=== PATIENT | female | born 1965 | race Caucasian/White ===

== ENCOUNTER → 2016-09-16 | Outpatient (CLI) | payer BC ==
--- NOTE | 2016-09-16 09:17 | US ---
EXAMINATION TYPE: US abdomen complete DATE OF EXAM: 09/16/2016 COMPARISON: NONE CLINICAL HISTORY: Pelvic Pain, Abd Pain R10.2 R10.9. Pt states right side ABD pain EXAM MEASUREMENTS: Liver Length: 21.1 cm CBD: 0.9 cm Spleen: 11.9 cm Right Kidney: 11.3 x 4.6 x 5.2 cm Left Kidney: 12.1 x 5.8 x 4.9 cm Pancreas: wnl, tail obscured by overlying bowel gas Liver: Enlarged, heterogeneous, difficult to penetrate Gallbladder: Surgically absent Evidence for sonographic Jean Baptiste's sign: No CBD: wnl for post ryann Spleen: wnl Right Kidney: wnl Left Kidney: wnl Upper IVC: wnl Abd Aorta: wnl The liver is mildly enlarged and heterogenous in its overall echo appearance. The intrahepatic portio n of the IVC and proximal abdominal aorta are within normal limits. The gallbladder is surgically abs ent. Common bile duct is unremarkable. The visualized portions of the pancreas are homogenous. The spleen is unremarkable. Kidneys are symmetric and free of hydronephrosis. No renal lesions are seen . IMPRESSION: 1. Hepatomegaly with probable underlying fatty hepatic infiltration.
--- NOTE | 2016-09-16 09:20 | US ---
EXAMINATION TYPE: US pelvis complete transvag DATE OF EXAM: 09/16/2016 COMPARISON: NONE CLINICAL HISTORY: Pelvic Pain, Abd Pain R10.2 R10.9. Pt states right side ABD pain/ Left oophorectom y with partial right oophorectomy TECHNIQUE: Transvaginal (TV) and Transabdominal (TA) Date of LMP: 2 yrs ago EXAM MEASUREMENTS: Uterus: 9.2 x 3.9 x 4.5 cm Endometrial Stripe: 1.1 cm Right Ovary: 2.0 x 0.9 x 2.5 cm 1. Uterus: Retroverted Heterogeneous, calcifications within cervix 2. Endometrium: Borderline thickening of the endometrial stripe. 3. Right Ovary: wnl 4. Left Ovary: Surgically absent 5. Bilateral Adnexa: wnl 6. Posterior cul-de-sac: wnl IMPRESSION: 1. Heterogeneity of the uterine myometrium may reflect small layering change. No distinct mass identi fied.
== END | disposition home or self-care (01) ==
LOC: RADUSWWP 08:21
PROVIDERS: ATTEND Family Medicine
DX: N85.9 Noninflammatory disorder of uterus, unspecified (principal); R16.0 Hepatomegaly, not elsewhere classified; R10.2 Pelvic and perineal pain
CPT/HCPCS: 76700; 76830; 76856

== ENCOUNTER → 2016-11-02 | Outpatient (CLI) | payer OTHER ==
--- NOTE | 2016-11-02 18:15 | XR ---
PROCEDURE: XR hand complete LT DATE AND TIME: 11/02/2016 5:32 PM REFERRING PHYSICIAN: Sb Coleman DO CLINICAL INDICATION: PHH, S61.201A S67.191A crush/wound left index finger TECHNIQUE: Department protocol. COMPARISON: None FINDINGS: There is no fracture or malalignment. Bandaging over the second digit noted. The soft tissues are otherwise unremarkable. IMPRESSION: NO ACUTE PROCESS.
== END | disposition home or self-care (01) ==
LOC: RADXRMAIN 17:15
PROVIDERS: ATTEND Emergency Medicine
DX: S67.191A Crushing injury of left index finger, initial encounter (principal); S61.201A Unspecified open wound of left index finger without damage to nail, initial encounter

== ENCOUNTER → 2017-03-24 | Outpatient (CLI) | payer BC ==
--- NOTE | 2017-03-24 14:04 | XR ---
EXAMINATION TYPE: XR knee complete RT DATE OF EXAM: 03/24/2017 COMPARISON: NONE HISTORY: Right knee pain TECHNIQUE: Three-view right knee FINDINGS: There is narrowing of the medial compartment joint space. Tibial plateau and medial femoral condylar spurring is present. No joint effusion is present. Some patellofemoral joint space narrowin g is present. Some lateral femoral condylar spurring is noted. No acute fractures are evident. Follow-up exam can be performed 7-10 days from acute trauma for mary nued pain. IMPRESSION: 1. Moderate degenerative changes medial compartment right knee.
== END | disposition home or self-care (01) ==
LOC: RADXRYALE 12:37
PROVIDERS: ATTEND Physician Assistant Medical
DX: M25.561 Pain in right knee (principal)

== ENCOUNTER → 2017-06-08 | Outpatient (CLI) | payer BC ==
--- NOTE | 2017-06-10 11:35 | MM ---
Reason for exam: screening (asymptomatic). Last mammogram was performed 3 years ago. History: Patient is postmenopausal. Physical Findings: A clinical breast exam by your physician is recommended on an annual basis and results should be correlated with mammographic findings. MG Screening Mammo w CAD Bilateral CC and MLO view(s) were taken. Prior study comparison: June 21, 2014, bilateral MG screening mammo w CAD. April 01, 2010, bilateral digital screening mammo w/CAD. There are scattered fibroglandular densities. No significant changes when compared with prior studies. ASSESSMENT: Negative, BI-RAD 1 RECOMMENDATION: Routine screening mammogram of both breasts in 1 year.
== END | disposition home or self-care (01) ==
LOC: RADMAMWWP 14:38
PROVIDERS: ATTEND Family Medicine
DX: Z12.31 Encounter for screening mammogram for malignant neoplasm of breast (principal)
CPT/HCPCS: 77067

== ENCOUNTER → 2017-07-07 | Outpatient (CLI) | payer BC ==
[2017-07-07 09:41] VITALS: BP 138/86; PULSE 82; TEMP 98.1; BMI 45.7
--- NOTE | 2017-07-07 09:59 | P.HPBAR ---
Bariatric H&P - History & Physicial H&P Date: 07/07/17 History & Physicial: Visit/CC: Patient initial contact: Initial weight: Initial weight in pounds: Height: 5 ft 5 in Initial BMI: Last weight: Current weight: 124.738 kg Current weight in pounds: Current BMI: [place] body weight (based on NIH guidelines): Excess body weight loss: The patient is a 52 year-old F who presents for Bariatric Assessment. She comes in looking into the sleeve gastrectomy. She has completed 2 months medical supervised weight loss. Her requirement is 7 months. She has tried Weight watchers, medical weight loss and diets at home in the past. Most weight loss was 40-lbs with medical weight loss. Highest weight was 290-lbs. Her personal goal is to get to 150 to 160 pounds. She has family history of morbid obesity in her mother and aunt. No family or friends has had weight loss surgery. She denies esophageal or stomach cancer. She has troubles with fatty and greasy foods with diarrhea following her gallbladder removal. She has not taken any medications for stomach acid or reflux. She denies any troubles with sleeping or snoring. She reports lower back pain and knee pain as a result of her obesity. She has developed diabetes type II and taking 2 oral medications where her average blood sugar is 110 to 120s in the morning. No family history of thyroid disorder. No inflammatory bowel disease in the family or DVTs in the family. She is a lifelong non-smoker. She reports a rash along her pannus. She denies dysphagia. ABDOMEN: No scars of the upper abdomen. Soft, nontender. Has rash along pannus consistent with panniculitis. ASSESSMENT: 1. Morbid obesity, BMI 45.8 2. Diabetes type II 3. Osteoarthritis of the knees. 4. Lower back pain. 5. Panniculitis PLAN: 1. Went over [facility] calculator and risks to procedures. 2. Upper endoscopy. 3. Bariatric labs. Past Medical History Past Medical History: Diabetes Mellitus History of Any Multi-Drug Resistant Organisms: None Reported Past Surgical History: Cholecystectomy, Ear Surgery, Tonsillectomy, Tubal Ligation Additional Past Surgical History / Comment(s): LEFT EARDRUM, 1 and 1/2 ovaries removed. Past Anesthesia/Blood Transfusion Reactions: No Reported Reaction Past Psychological History: Anxiety Smoking Status: Never smoker Past Alcohol Use History: Occasional Past Drug Use History: None Reported - Past Family History Mother Family Medical History: Cancer Bariatric Checklist Checklist: Plan: Checklist: EGD: 1. Hiatal hernia: 2. H. Pylori: HgbA1c: Vitamin D: Smoking: Never smoker Primary care physician referral: Psychiatry clearance: Cardiology clearance: Sleep study: Diet journal: VTE risk score: VTE risk level: Rehab needs at discharge:
[2017-07-07 10:40] LABS: HCT 38.4 % (34.0-46.0); HGB 13.2 gm/dL (11.4-16.0); MCH 30.3 pg (25.0-35.0); MCHC 34.5 g/dL (31.0-37.0); MCV 88.1 fL (80.0-100.0); Mean Platelet Volume 7.1; Platelet Count 282 k/uL (150-450); RBC 4.36 m/uL (3.80-5.40); RDW 12.9 % (11.5-15.5); WBC 7.8 k/uL (3.8-10.6)
[2017-07-07 10:59] LABS: ALT 46 U/L (9-52); AST 32 U/L (14-36); Albumin 4.5 g/dL (3.5-5.0); Alkaline Phosphatase 115 U/L (38-126); Anion Gap 16 mmol/L; Blood Urea Nitrogen 14 mg/dL (7-17); Calcium 10.2 mg/dL (8.4-10.2); Carbon Dioxide 24 mmol/L (22-30); Chloride 101 mmol/L (98-107); Cholesterol 197 mg/dL (<200); Glucose 132 mg/dL (74-99); HDL Cholesterol 58 mg/dL (40-60); LDL Cholesterol,Calculated 105 mg/dL (0-99); Potassium 4.7 mmol/L (3.5-5.1); Sodium 141 mmol/L (137-145); Total Bilirubin 0.4 mg/dL (0.2-1.3); Total Protein 7.3 g/dL (6.3-8.2); Triglycerides 170 mg/dL (<150)
[2017-07-07 16:55] LABS: Iron Saturation 18.16 (12.00-45.00)
[2017-07-07 17:05] LABS: Vitamin D 25 Hydroxy 17.4 ng/mL (30.0-100.0)
[2017-07-07 17:06] LABS: Folate, Serum >24.0 ng/mL
[2017-07-07 17:15] LABS: Hemoglobin A1C 7.1 % (4.0-6.0)
== END | disposition home or self-care (01) ==
LOC: BARWHC3 09:02
PROVIDERS: ATTEND Surgery Plastic and Reconstructive Surgery
DX: E66.01 Morbid (severe) obesity due to excess calories (principal); E11.9 Type 2 diabetes mellitus without complications; M17.0 Bilateral primary osteoarthritis of knee; M54.5 Low back pain; M79.3 Panniculitis, unspecified; F41.9 Anxiety disorder, unspecified; Z90.49 Acquired absence of other specified parts of digestive tract; Z68.42 Body mass index [BMI] 45.0-49.9, adult
CPT/HCPCS: 36415; 80053; 80061; 82306; 82607; 82728; 82746; 83036; 83540; 83550; 84425; 84443; 85027; 93005; 99211

== ENCOUNTER 2017-08-17 07:58 | Day surgery (SDC) | payer BC ==
[2017-08-15 15:37] VITALS: BMI 45.6
[~2017-08-17 07:58] MED LIST: LACTATED RINGERS 1,000 ML IV SCH; LIDOCAINE 1% 20 ML VIAL (10MG/ML) FOR IV START INTRADERMA PRN
[2017-08-17 08:17] VITALS: TEMP 97.3
[2017-08-17 08:25] LABS: Glucose,Whole Blood 143 mg/dL (75-99)
[2017-08-17] MEDS ORDERED: PROPOFOL 10 MG/ML 20 ML VIAL IV ONE (08:27)
--- NOTE | 2017-08-17 08:45 | P.GSHP ---
History of Present Illness H&P Date: 08/17/17 CHIEF COMPLAINT: GERD HISTORY OF PRESENT ILLNESS: The patient is a 52-year-old female who presents reports gastroesophageal reflux disease. Upper endoscopy was offered for further evaluation and management. PAST MEDICAL HISTORY: Please see list. PAST SURGICAL HISTORY: Please see list. MEDICATIONS: Please see list. ALLERGIES: Please see list. SOCIAL HISTORY: No illicit drug use FAMILY HISTORY: No reports of Crohn disease or ulcerative colitis. REVIEW OF ORGAN SYSTEMS: CONSTITUTIONAL: No reports of fevers or chills. GI: Denies any blood in stools or constipation. PHYSICAL EXAM: VITAL SIGNS: Stable GENERAL: Well-developed and pleasant in no acute distress. HEENT: No scleral icterus. Extraocular movements grossly intact. Moist buccal mucosa. NECK: Supple without lymphadenopathy. CHEST: Unlabored respirations. Equal bilateral excursions. CARDIOVASCULAR: Regular rate and rhythm. Distal 2+ pulses. ABDOMEN: Soft, nondistended. MUSCULOSKELETAL: No clubbing, cyanosis, or edema. ASSESSMENT: 1. Gastroesophageal reflux disease PLAN: 1. Recommend proceeding with an upper endoscopy Past Medical History Past Medical History: Diabetes Mellitus, Hyperlipidemia History of Any Multi-Drug Resistant Organisms: None Reported Past Surgical History: Cholecystectomy, Ear Surgery, Tonsillectomy, Tubal Ligation Additional Past Surgical History / Comment(s): LEFT EARDRUM, 1 and 1/2 ovaries removed. Past Anesthesia/Blood Transfusion Reactions: No Reported Reaction Smoking Status: Never smoker - Past Family History Mother Family Medical History: Cancer Daughter(s) Family Medical History: Deep Vein Thrombosis (DVT) Medications and Allergies Home Medications Medication Instructions Recorded Confirmed Type metFORMIN HCL [metFORMIN HCL] 1,000 mg PO BID 10/31/13 08/17/17 History Aspirin [Adult Low Dose Aspirin EC] 81 mg PO DAILY 12/09/16 08/17/17 History Atorvastatin [Lipitor] 40 mg PO HS 12/09/16 08/17/17 History Citalopram Hydrobromide 40 mg PO DAILY 12/09/16 08/17/17 History [Citalopram HBr] Multivitamins, Thera [Multivitamin 1 tab PO DAILY 12/09/16 08/17/17 History (formulary)] Pioglitazone [Actos] 30 mg PO DAILY 12/09/16 08/17/17 History Allergies Allergy/AdvReac Type Severity Reaction Status Date / Time No Known Allergies Allergy Verified 08/15/17 15:34 Surgical - Exam Vital Signs Temp Pulse Resp BP Pulse Ox 97.3 F L 71 14 115/72 96 08/17/17 08:15 08/17/17 08:15 08/17/17 08:15 08/17/17 08:15 08/17/17 08:15 Results - Labs Abnormal Lab Results - Last 24 Hours (Table) 08/17/17 Range/Units 08:20 POC Glucose (mg/dL) 143 H (75-99) mg/dL
--- NOTE | 2017-08-17 08:47 | P.PCN ---
Date of Procedure: 08/17/17 Description of Procedure: PREOPERATIVE DIAGNOSIS: Gastroesophageal reflux disease. Morbid obesity. POSTOPERATIVE DIAGNOSIS: Morbid obesity. Gastritis with recent bleed Gastric ulcer along the antrum Gastroesophageal reflux disease. Diaphragmatic hiatal hernia without obstruction. OPERATION: Esophagogastroduodenoscopy with biopsies along antrum. SURGEON: Loly Cm MD ANESTHESIA: MAC. INDICATIONS: The patient is a 52-year-old female who presents with a history of reflux disease. Benefits and risks of the procedure were described. Informed consent was obtained. DESCRIPTION: The patient was brought into the endoscopy suite and laid in the left lateral decubitus position. An Olympus gastroscope was passed along the posterior oropharynx down to the distal esophagus where the squamocolumnar junction was encountered at 32 cm from the incisors. The stomach was entered and no bile reflux was found. Additional findings are listed below. Biopsies with cold forceps were obtained of the antrum. The first through third portion of the duodenum was examined and unremarkable. Retroflexion of the scope confirmed Hill grade 4 lower esophageal valve. The squamocolumnar junction demostrated LA grade A erosive esophagitis. The stomach was desufflated. The patient tolerated the procedure well. FINDINGS: Squamocolumnar junction 32 cm from the incisors. Diaphragmatic hiatus at 35 cm. Hiatal hernia 3 cm. Hill grade 4 lower esophageal valve. LA grade A erosive esophagitis. No active duodenitis. Acute superficial gastritis with bleeding Superficial gastric ulcer along antrum RECOMMENDATIONS: Further recommendations pending results of pathology report. Upper endoscopy as needed. Will benefit from antireflux surgical procedure Plan - Discharge Summary New Discharge Prescriptions: No Action metFORMIN HCL [metFORMIN HCL] 1,000 mg PO BID Atorvastatin [Lipitor] 40 mg PO HS Pioglitazone [Actos] 30 mg PO DAILY Multivitamins, Thera [Multivitamin (formulary)] 1 tab PO DAILY Aspirin [Adult Low Dose Aspirin EC] 81 mg PO DAILY Citalopram Hydrobromide [Citalopram HBr] 40 mg PO DAILY Discharge Medication List metFORMIN HCL [metFORMIN HCL] 1,000 mg PO BID 10/31/13 [History] Aspirin [Adult Low Dose Aspirin EC] 81 mg PO DAILY 12/09/16 [History] Atorvastatin [Lipitor] 40 mg PO HS 12/09/16 [History] Citalopram Hydrobromide [Citalopram HBr] 40 mg PO DAILY 12/09/16 [History] Multivitamins, Thera [Multivitamin (formulary)] 1 tab PO DAILY 12/09/16 [History ] Pioglitazone [Actos] 30 mg PO DAILY 12/09/16 [History]
[2017-08-17 08:53] VITALS: RESP 16
[2017-08-17 09:11] VITALS: BP 103/61; PULSE 63
== END 2017-08-17 09:25 | disposition home or self-care (01) ==
LOC: ORWHC2ENDO 07:58
PROVIDERS: ATTEND Surgery Plastic and Reconstructive Surgery
DX: K29.01 Acute gastritis with bleeding (principal); K29.50 Unspecified chronic gastritis without bleeding; K21.9 Gastro-esophageal reflux disease without esophagitis; K44.9 Diaphragmatic hernia without obstruction or gangrene; F41.9 Anxiety disorder, unspecified; E66.01 Morbid (severe) obesity due to excess calories; E11.9 Type 2 diabetes mellitus without complications; K22.10 Ulcer of esophagus without bleeding; E78.5 Hyperlipidemia, unspecified; Z90.49 Acquired absence of other specified parts of digestive tract; Z79.84 Long term (current) use of oral hypoglycemic drugs; Z79.82 Long term (current) use of aspirin; Z79.899 Other long term (current) drug therapy; Z68.42 Body mass index [BMI] 45.0-49.9, adult
CPT/HCPCS: 88305; 43239; J2704

== ENCOUNTER → 2017-11-02 | Outpatient (CLI) | payer BC | END | disposition home or self-care (01) | DX: K44.9 Diaphragmatic hernia without obstruction or gangrene (principal); R63.4 Abnormal weight loss; Z90.49 Acquired absence of other specified parts of digestive tract ==

== ENCOUNTER → 2017-11-07 | Outpatient (CLI) | payer BC ==
[2017-11-07 15:26] VITALS: BMI 37.8
== END | disposition home or self-care (01) ==
LOC: BARWHC3 08:56
PROVIDERS: ATTEND Surgery Plastic and Reconstructive Surgery
DX: E66.01 Morbid (severe) obesity due to excess calories (principal); Z68.37 Body mass index [BMI] 37.0-37.9, adult
CPT/HCPCS: 97804

== ENCOUNTER → 2017-11-25 | Outpatient (CLI) | payer OTHER ==
--- NOTE | 2017-11-25 15:57 | XR ---
EXAMINATION TYPE: XR shoulder complete RT DATE OF EXAM: 11/25/2017 COMPARISON: 04/01/2010 HISTORY: Pain TECHNIQUE: Shoulder examined in 3 FINDINGS: The humeral head articulates with the glenoid. The acromio-clavicular junction is normal. No acute fractures or dislocations are evident. A follow up study can be performed 7-10 days from acute trauma for continued pain. IMPRESSION: 1. Normal Shoulder
== END ==
LOC: RADXRMAIN 15:34
PROVIDERS: ATTEND Emergency Medicine
DX: S43.401A Unspecified sprain of right shoulder joint, initial encounter (principal)

== ENCOUNTER → 2017-12-06 | Outpatient (CLI) | payer OTHER ==
--- NOTE | 2017-12-06 22:05 | MR ---
EXAMINATION TYPE: MR shoulder RT wo con DATE OF EXAM: 12/06/2017 COMPARISON: Plain film 11/25/2017, prior right shoulder MRI 04/30/2010 HISTORY: Rt shoulder strain/pain TECHNIQUE: Multiplanar, multisequence imaging of the right shoulder is performed without contrast. FINDINGS: Rotator Cuff: The rotator cuff is markedly attenuated at the level of its insertion, at the anterior aspect of the insertion there is a partial full-thickness tear present which has progressed in the in terval. Acromioclavicular Joint: Hypertrophic changes are again noted at the acromioclavicular joint with mas s effect on the musculotendinous junction of supraspinatus, accessory ossicle at the superior aspect of the joint. Glenohumeral Joint: Intact Labrum: Stable appearance, no definite tear, there is some increased signal within the superior labru m may be due to degeneration Biceps Tendon: Long head of biceps tendon shows fluid signal around its substance, the bicipital groo ve does not show the tendon in place, suspect there is subluxation of the tendon medially Bone marrow signal: Pseudocysts are present within the humeral head Other: There is fluid signal subacromial subdeltoid bursa. IMPRESSION: There is a partial full-thickness tear the rotator cuff tendon, there is associated tendinopathy whic h is progressed in the interval. Suspect there may be subluxation of the long head of biceps tendon m edially from the bicipital groove
== END | disposition home or self-care (01) ==
LOC: RADMRIMAIN 20:53
PROVIDERS: ATTEND Emergency Medicine
DX: S46.011D Strain of muscle(s) and tendon(s) of the rotator cuff of right shoulder, subsequent encounter (principal); M75.91 Shoulder lesion, unspecified, right shoulder

== ENCOUNTER → 2018-01-04 | Outpatient (CLI) | payer BC ==
--- NOTE | 2018-01-04 17:11 | P.PN ---
Subjective Progress Note Date: 01/04/18 DATE OF SERVICE: 01/04/2018 CHIEF COMPLAINT: Bariatric evaluation. HISTORY OF PRESENT ILLNESS: Yue Nguyen is a 52-year-old female who comes in with morbid obesity. No reports of abdominal pain. She is looking into the sleeve gastrectomy. As a result of her morbid obesity, she has developed diabetes type 2, osteoarthritis, and hypertensive heart disease. Highest weight was 290-lbs. At height of 5 feet 5 inches, her ideal body weight is 149 pounds. She comes in 273 pounds. Her body mass index is down from 48.4 to 45.5. She is 124 pounds overweight. PAST MEDICAL HISTORY: 1. Morbid obesity, BMI 48.4, initial 2. Diabetes type II, [id number]. 3. Osteoarthritis of the knees. 4. Osteoarthritis of the hips. 5. Osteoarthritis of the lower back. 6. Hypertensive heart disease. 7. Depressive disorder 8. Hyperlipidemia 9. Anxiety PAST SURGICAL HISTORY: 1. Cholecystectomy 2. Ear surgery 3. Tubal ligation 4. Tonsillectomy HOME MEDICATIONS: 1. Metformin 2. Actos 3. Multivitamin 4. Citalopram 5. Lipitor 6. Aspirin ALLERGIES: Denies. SOCIAL HISTORY: No active tobacco use. FAMILY HISTORY: No family history of ulcerative colitis disease or Crohn's disease. Family history of morbid obesity. No lupus in the family. No reports of stomach or esophageal cancer. Family history of diabetes type 2. She has family history of morbid obesity in her mother and aunt. She has no family or friends has had weight loss surgery. She denies esophageal or stomach cancer. No family history of thyroid disorder. No inflammatory bowel disease in the family or DVTs in the family. REVIEW OF ORGAN SYSTEMS: CONSTITUTIONAL: Highest weight was 290-lbs. At height of 5 feet 5 inches, her ideal body weight is 149 pounds. She comes in 273 pounds. Her body mass index is down from 48.4 to 45.5. She is 124 pounds overweight. HEENT: Denies any active troubles with vision or hearing. No troubles with swallowing. ENDOCRINE: Has diabetes. No hypothyroidism. CARDIOVASCULAR: No reports of palpitations or heart attacks or chest pain. RESPIRATORY: Has daytime somnolence. No asthma. GI: Denies any bright red blood per rectum. No diarrhea or constipation. MUSCULOSKELETAL: Has lower back pain and joint pain. Has osteoarthritis of the knees. NEURO: No headaches. No seizure disorders. PSYCH: No depression or suicidal ideation. RHEUMATOLOGIC: No lupus. No rheumatoid arthritis. HEMATOLOGIC: Denies any abnormal bleeding or bruising. No personal history of DVTs. SKIN: She reports a rash along her pannus. No skin cancer. PHYSICAL EXAM: VITAL SIGNS: Height 5 foot 5 inches, weight 273 pounds. BMI 45.5 Vital Signs Temp 98.7 F 01/04/18 17:11 Pulse 101 H 01/04/18 17:11 Resp 16 01/04/18 17:11 BP 138/92 01/04/18 17:11 Pulse Ox GENERAL: Well-developed in no acute distress. HEENT: No scleral icterus. Extraocular movements grossly intact. Hears conversational speech. No nasal drainage. NECK: Supple without lymphadenopathy. CHEST: Nonlabored respirations with equal bilateral excursions. CARDIOVASCULAR: Tachycardic. Distal 2+ pulses. ABDOMEN: Soft, nontender. MUSCULOSKELETAL: No clubbing, cyanosis. Gross strength 5/5 distal lower extremities. No pre-tibial pitting edema. NEURO: No focal or lateralizing signs. Cranial nerves 2 through 12 grossly within normal limits. PSYCH: Appropriate affect. Alert and oriented to person, place and time. SKIN: Good skin turgor. Well perfused. ASSESSMENT: 1. Morbid obesity due to excess caloried, BMI 48.4, initial 2. Diabetes type II, [id number]. 3. Osteoarthritis of the knees. 4. Osteoarthritis of the hips. 5. Osteoarthritis of the lower back. 6. Hypertensive heart disease. 7. Depressive disorder 8. Hyperlipidemia 9. Anxiety PLAN: 1. Bariatric options between a sleeve, band and a Rosey-en-Y gastric bypass were reviewed in detail. She elected for a sleeve gastrectomy. Robotic assisted approach described. 2. An 8 page second-generation bariatric consent form was reviewed in detail including potential of bleeding, infection, leaks, adequate weight loss, nutritional deficiencies which he demonstrated understanding of the risks. 3. A 2 week high-protein low caloric 800 kcal diet described to address hepatomegaly. 4. Preoperative labs including complete metabolic panel and CBC with type and screen recommended. 5. DVT prophylaxis per [place] [facility]. 6. Antibiotic prophylaxis. 7. Inpatient hospitalization anticipated for more than 2 nights. 8. All questions and concerns were addressed with the patient. 9. She is intermediate risk for surgical complications with her diabetes and morbid obesity.
[2018-01-04 17:14] VITALS: BP 138/92; PULSE 101; RESP 16; TEMP 98.7; BMI 45.5
== END | disposition home or self-care (01) ==
LOC: BARWHC3 15:55
PROVIDERS: ATTEND Surgery Plastic and Reconstructive Surgery
DX: E66.01 Morbid (severe) obesity due to excess calories (principal); E11.9 Type 2 diabetes mellitus without complications; M17.0 Bilateral primary osteoarthritis of knee; M16.0 Bilateral primary osteoarthritis of hip; M19.90 Unspecified osteoarthritis, unspecified site; I11.9 Hypertensive heart disease without heart failure; F32.9 Major depressive disorder, single episode, unspecified; E78.5 Hyperlipidemia, unspecified; F41.9 Anxiety disorder, unspecified; Z68.42 Body mass index [BMI] 45.0-49.9, adult; Z79.899 Other long term (current) drug therapy; Z79.84 Long term (current) use of oral hypoglycemic drugs; Z79.82 Long term (current) use of aspirin; Z90.89 Acquired absence of other organs; Z90.49 Acquired absence of other specified parts of digestive tract
CPT/HCPCS: 99211

== ENCOUNTER → 2018-01-06 | Outpatient (CLI) | payer BC ==
[2018-01-06 14:05] LABS: Basophils % (A) 0 %; Eosinophils # (A) 0.1 k/uL (0-0.7); Eosinophils % (A) 1 %; HCT 42.3 % (34.0-46.0); HGB 13.7 gm/dL (11.4-16.0); Lymphocytes # (A) 2.2 k/uL (1.0-4.8); Lymphocytes % (A) 26 %; MCH 29.9 pg (25.0-35.0); MCHC 32.4 g/dL (31.0-37.0); MCV 92.3 fL (80.0-100.0); Mean Platelet Volume 6.9; Monocytes # (A) 0.6 k/uL (0-1.0); Monocytes % (A) 7 %; Neutrophils # (A) 5.2 k/uL (1.3-7.7); Neutrophils % (A) 63 %; Platelet Count 240 k/uL (150-450); RBC 4.59 m/uL (3.80-5.40); RDW 13.8 % (11.5-15.5); WBC 8.2 k/uL (3.8-10.6)
[2018-01-06 14:51] LABS: ALT 86 U/L (9-52); AST 64 U/L (14-36); Albumin 4.2 g/dL (3.5-5.0); Alkaline Phosphatase 80 U/L (38-126); Anion Gap 10 mmol/L; Blood Urea Nitrogen 19 mg/dL (7-17); Carbon Dioxide 22 mmol/L (22-30); Chloride 104 mmol/L (98-107); Glucose 127 mg/dL (74-99); Potassium 4.4 mmol/L (3.5-5.1); Sodium 136 mmol/L (137-145); Total Bilirubin 0.5 mg/dL (0.2-1.3); Total Protein 7.3 g/dL (6.3-8.2)
== END ==
LOC: LABPAT 12:30
PROVIDERS: ATTEND Surgery Plastic and Reconstructive Surgery
DX: Z01.812 Encounter for preprocedural laboratory examination (principal)
CPT/HCPCS: 36415; 80053; 85025; 86850; 86900; 86901

== ENCOUNTER 2018-01-16 10:11 | Inpatient (IN) | payer BC ==
--- NOTE | 2018-01-16 00:42 | P.GSHP ---
History of Present Illness H&P Date: 01/16/18 DATE OF SERVICE: 01/16/18 CHIEF COMPLAINT: Morbid obesity HISTORY OF PRESENT ILLNESS: Yue Nguyen is a 52-year-old female who comes in with morbid obesity. She denies any reflux. She completed her 7 month of dietary weight loss. Her highest weight was 290-lbs. She has developed diabetes type II. At height of 5 feet 5 inches, ideal body weight is 149 pounds. She comes in 269 pounds. Her body mass index was 49.9 and is now 44.9. She is 225 pounds overweight. PAST MEDICAL HISTORY: 1. Morbid obesity, BMI 49.9, initial 2. Diabetes type II, [id number]-[id number]. 3. Osteoarthritis of the knees. 4. Osteoarthritis of the hips. 5. Osteoarthritis of the lower back. 6. Hypertensive heart disease. 7. Depressive disorder 8. Hyperlipidemia 9. Anxiety PAST SURGICAL HISTORY: 1. Cholecystectomy 2. Ear surgery 3. Tubal ligation 4. Tonsillectomy HOME MEDICATIONS: 1. Metformin 2. Actos 3. Multivitamin 4. Citalopram 5. Lipitor 6. Aspirin ALLERGIES: Denies. SOCIAL HISTORY: No active tobacco use. FAMILY HISTORY: No family history of ulcerative colitis disease or Crohn's disease. Family history of morbid obesity. No lupus in the family. No reports of stomach or esophageal cancer. Family history of diabetes type 2. She has family history of morbid obesity in her mother and aunt. She has no family or friends has had weight loss surgery. She denies esophageal or stomach cancer. No family history of thyroid disorder. No inflammatory bowel disease in the family or DVTs in the family. REVIEW OF ORGAN SYSTEMS: CONSTITUTIONAL: Her highest weight was 290-lbs. She has developed diabetes type II. At height of 5 feet 5 inches, ideal body weight is 149 pounds. She comes in 269 pounds. Her body mass index was 49.9 and is now 44.9. She is 225 pounds overweight. HEENT: Denies any active troubles with vision or hearing. No troubles with swallowing. ENDOCRINE: Has diabetes. No hypothyroidism. CARDIOVASCULAR: No reports of palpitations or heart attacks or chest pain. RESPIRATORY: Has daytime somnolence. No asthma. GI: Denies any bright red blood per rectum. No diarrhea or constipation. MUSCULOSKELETAL: Has lower back pain and joint pain. Has osteoarthritis of the knees. NEURO: No headaches. No seizure disorders. PSYCH: No depression or suicidal ideation. RHEUMATOLOGIC: No lupus. No rheumatoid arthritis. HEMATOLOGIC: Denies any abnormal bleeding or bruising. No personal history of DVTs. SKIN: She reports a rash along her pannus. No skin cancer. PHYSICAL EXAM: VITAL SIGNS: Height 5 foot 5 inches, weight 269 pounds. BMI 44.9 GENERAL: Well-developed in no acute distress. HEENT: No scleral icterus. Extraocular movements grossly intact. Hears conversational speech. No nasal drainage. NECK: Supple without lymphadenopathy. CHEST: Nonlabored respirations with equal bilateral excursions. CARDIOVASCULAR: Regular rate and regular rhythm. Distal 2+ pulses. ABDOMEN: Soft, nontender. MUSCULOSKELETAL: No clubbing, cyanosis. Gross strength 5/5 distal lower extremities. No pre-tibial pitting edema. NEURO: No focal or lateralizing signs. Cranial nerves 2 through 12 grossly within normal limits. PSYCH: Appropriate affect. Alert and oriented to person, place and time. SKIN: Good skin turgor. Well perfused. ASSESSMENT: 1. Morbid obesity, BMI 48.4, initial to 44.9 2. Diabetes type II, [id number]-ybwaemcal. 3. Osteoarthritis of the knees. 4. Osteoarthritis of the hips. 5. Osteoarthritis of the lower back. 6. Hypertensive heart disease. 7. Depressive disorder 8. Hyperlipidemia 9. Anxiety 10. Dietary surveillance and counseling 11. Panniculitis PLAN: 1. [facility] calculator reviewed. Benefits and risks described. 2. Consent reviewed. 3. She has elected for a sleeve gastrectomy. 4. Bariatric options between a sleeve, band and a Rosey-en-Y gastric bypass were reviewed in detail. She elected for a sleeve gastrectomy. Robotic assisted approach described. 5. The [place] [facility] Data was also reviewed with benefits and risks as described. 6. An 8 page second-generation bariatric consent form was reviewed in detail including potential of bleeding, infection, leaks, adequate weight loss, nutritional deficiencies which he demonstrated understanding of the risks. 7. A 2 week high-protein low caloric 800 kcal diet described to address hepatomegaly. 8. Preoperative labs including complete metabolic panel and CBC with type and screen recommended. 9. DVT prophylaxis per [place] [facility]. 10. Antibiotic prophylaxis. 11. Inpatient hospitalization anticipated for more than 2 nights. Past Medical History Past Medical History: Diabetes Mellitus, Hyperlipidemia Additional Past Medical History / Comment(s): type 2 DM, History of Any Multi-Drug Resistant Organisms: None Reported Past Surgical History: Cholecystectomy, Ear Surgery, Tonsillectomy, Tubal Ligation Additional Past Surgical History / Comment(s): LEFT EARDRUM, Left ovary removed and 1/2 of right ovaries removed. Past Anesthesia/Blood Transfusion Reactions: No Reported Reaction Smoking Status: Never smoker - Past Family History Mother Family Medical History: Cancer Daughter(s) Family Medical History: Deep Vein Thrombosis (DVT) Additional Family Medical History / Comment(s): jugular vein DVT, Medications and Allergies Home Medications Medication Instructions Recorded Confirmed Type metFORMIN HCL 1,000 mg PO BID 10/31/13 01/09/18 History Aspirin [Adult Low Dose Aspirin EC] 81 mg PO DAILY 12/09/16 01/09/18 History Atorvastatin [Lipitor] 40 mg PO HS 12/09/16 01/09/18 History Citalopram Hydrobromide 40 mg PO DAILY 12/09/16 01/09/18 History [Citalopram HBr] Multivitamins, Thera [Multivitamin 1 tab PO DAILY 12/09/16 01/09/18 History (formulary)] Pioglitazone [Actos] 30 mg PO DAILY 12/09/16 01/09/18 History Omeprazole 40 mg PO DAILY #30 capsule. 08/17/17 01/09/18 Rx Cholecalciferol [Vitamin D3] 5,000 unit PO DAILY 11/07/17 01/09/18 History Allergies Allergy/AdvReac Type Severity Reaction Status Date / Time No Known Allergies Allergy Verified 01/09/18 11:57
[~2018-01-16 10:11] MED LIST changes: -LACTATED RINGERS 1,000 ML IV SCH; -LIDOCAINE 1% 20 ML VIAL (10MG/ML) FOR IV START INTRADERMA PRN; +MIDAZOLAM 2 MG/2 ML VIAL IV PRN; +SCOPOLAMINE 1.5MG/72HR PATCH TRANSDERM ONE
[2018-01-16 10:48] LABS: Glucose,Whole Blood 154 mg/dL (75-99)
[2018-01-16] MEDS: LACTATED RINGERS 1,000 ML IV SCH (10:48)
[2018-01-16] MEDS ORDERED: LIDOCAINE 1% 20 ML VIAL (10MG/ML) FOR IV START INTRADERMA ONE (10:49)
[2018-01-16] MEDS: PANTOPRAZOLE 40 MG/10 ML VIAL IV ONE ×2 (10:51→17:15)
[2018-01-16] MEDS: ONDANSETRON 4 MG/2 ML VIAL IVP ONE ×2 (10:51→17:14)
[2018-01-16] MEDS: DEXAMETHASONE SOD PHOSPHATE 10 MG/ML 1 ML VIAL IV ONE ×2 (10:51→17:14)
[2018-01-16] MEDS: ENOXAPARIN 40 MG/0.4 ML SYRINGE SQ ONE ×2 (10:52→17:15)
[2018-01-16] MEDS: CHLORHEXIDINE GLUCONATE 15 ML CUP MUCOUS MEM ONE ×2 (11:52→17:14)
[2018-01-16] MEDS ORDERED: fentaNYL (PF) 50 MCG/ML 2 ML AMP ONE (12:26)
[2018-01-16] MEDS ORDERED: GLYCOPYRROLATE 0.2 MG/ML 2 ML VIAL ONE (12:26)
[2018-01-16] MEDS ORDERED: PROPOFOL 10 MG/ML 20 ML VIAL IV ONE (12:26)
[2018-01-16] MEDS ORDERED: NEOSTIGMINE 1 MG/ML 10 ML VIAL ONE (12:26)
[2018-01-16] MEDS ORDERED: MIDAZOLAM 2 MG/2 ML VIAL ONE (12:26)
[2018-01-16] MEDS ORDERED: ROCURONIUM BROMIDE 10 MG/ML 10 ML VIAL IV ONE (12:26)
[2018-01-16] MEDS ORDERED: SUCCINYLCHOLINE CHLORIDE VIAL 200 MG/10 ML VIAL IV ONE (12:26)
[2018-01-16] MEDS ORDERED: LIDOCAINE 1% INJ 10MG/ML (20 ML MDV) ONE (12:26)
[2018-01-16] MEDS ORDERED: KETOROLAC 30 MG/ML 1 ML VIAL ONE (12:26)
[2018-01-16] MEDS ORDERED: BUPIVACAIN-EPI 0.5%-1:200,000 30 ML VIAL SQ ONE (13:20)
[2018-01-16] MEDS ORDERED: diphenhydrAMINE ELIXIR 25 MG/10 ML CUP PO PRN (14:52)
[2018-01-16] MEDS ORDERED: NALOXONE 0.4 MG/ML 1 ML VIAL IV PRN (14:52)
--- NOTE | 2018-01-16 14:58 | P.OP ---
Date of Procedure: 01/16/18 Description of Procedure: SURGEON: VANDANA RICO MD PREOPERATIVE DIAGNOSES: 1. Morbid obesity, BMI 48.4, initial to 44.2 2. Diabetes type II, [id number]-aoatlpygm. 3. Osteoarthritis of the knees. 4. Osteoarthritis of the hips. 5. Osteoarthritis of the lower back. 6. Hypertensive heart disease. 7. Depressive disorder 8. Hyperlipidemia 9. Anxiety 10. Dietary surveillance and counseling 11. Panniculitis POSTOPERATIVE DIAGNOSES: 1. Morbid obesity, BMI 48.4, initial to 44.2 2. Diabetes type II, [id number]-qaxeqsxiq. 3. Osteoarthritis of the knees. 4. Osteoarthritis of the hips. 5. Osteoarthritis of the lower back. 6. Hypertensive heart disease. 7. Depressive disorder 8. Hyperlipidemia 9. Anxiety 10. Dietary surveillance and counseling 11. Panniculitis 12. Peritoneal adhesions including afia-hepatic and perigastric adhesions from previous cholecystectomy OPERATION: 1. Robotic assisted daVinci Xi laparoscopic assisted adhesions over 20 minutes performed 2. Robotic assisted daVinci Xi laparoscopic sleeve gastrectomy with 40-Icelandic bougie, multiport. 3. Intraoperative esophagogastroduodenoscopy. ANESTHESIA: Gen. local anesthetic ESTIMATED BLOOD LOSS: 20 mL SPECIMENS REMOVED: Sleeve gastrectomy COMPLICATIONS: None. INDICATIONS: Yue Nguyen is a 52-year-old female who comes in with morbid obesity. She denies any reflux. She completed her 7 month of dietary weight loss. Her highest weight was 290-lbs. She has developed diabetes type II. At height of 5 feet 5 inches, ideal body weight is 149 pounds. She comes in 269 pounds. Her body mass index was 49.9 and is now 44.9. She is 225 pounds overweight. All surgical options for morbid obesity had been described using the [place] [facility] comorbidity resolution including complication risk score. A second-generation bariatric consent form was described in detail including the possibility of protein malnutrition, leaks, gastric stricture, venous thrombosis, gastroesophageal reflux disease, need for further surgery for which she demonstrated understanding. Benefits and risks of the procedure were described at length. Informed consent was obtained. DESCRIPTION: The patient was brought into the operating room theater. Preoperatively she had received Lovenox subcutaneously for DVT prophylaxis. Additionally she had Peridex oral solution as an oral decontaminant. After general induction, the abdomen was prepped and draped in standard sterile fashion. An Ioban draping was placed along the abdomen. A robotic da Morena Xi system was prepped and primed. The xiphoid to umbilicus measured 25 cm. At 15 cm from the xiphoid, proposed port sites were marked with indelible marker along the anterior axillary line bilaterally, mid axillary line bilaterally with each ports were marked 10 to 15 cm from each other. The technical support assistant port was marked along the left lateral abdominal wall. The robotic stapler port was marked for the right midclavicular line. A 5 mm 0 degrees laparoscopic trocar entry was performed along the left upper quadrant. The abdomen was insufflated to 15 mmHg pressure she tolerated well. Diagnostic laparoscopy demonstrated no injury to bowel, viscera, or mesentery. The liver surface was unremarkable for perihepatic and perigastric adhesions from previous cholecystectomy. No injury had occurred to the small bowel or viscera. Along the hiatus no evidence of large prominent hiatal hernia was encountered. A 8 mm port was placed along the right upper abdominal wall after exchanging the 5 mm port. A separate 8 mm port was placed along the left lateral abdominal wall. Please note that the ports were placed at least 20 cm away from the target anatomy. Care was taken to check each robotic arms were safely away from collision with the bed or the patient. At the epigastrium, a median sized Abdi liver retractor was placed under direct visualization with the Iron Special Needs Tutor placed under the right shoulder of the patient. Next, 12-mm robot stapler port was placed along the right upper quadrant. The camera 8-mm port was maintained along the epigastrium. The patient was repositioned in reverse Trendelenburg position at 14-degrees after lowering the bed. The robot was docked along the left side of the patient. Using a grasper for arm 4, a veseel sealer for arm 3, including grasper for arm 1, the robotic system was docked and primed as described. Instruments were interchanged by the technical support assistant for stapler loads. The camera was placed at 30-degrees down. I had sat at the console. Afia-hepatic and perigastric adhesions were addressed using a vessel sealer for over 20 minutes. The pylorus was identified and 6 cm proximally along the greater curvature of the stomach, the short gastrics were mobilized upwards to the angle of His using a vessel sealer. Hemostasis was excellent during this portion of the procedure. Next, the upper pole of the stomach was adherent to the left kolby, which was gently dissected free using atraumatic grasper. Moderate redundancy of the posterior upper pole of the stomach was identified. The nursing solderer dipper placed a 40-Icelandic blunted tip bougie into the stomach. Robotic stapler green loads 45 mm x 10 were used to create the sleeve. Initial firing was across the antrum of the stomach towards the angle of His. The staple line was completely hemostatic and linear without corkscrewing. Hemostasis was excellent. The space from the angularis incisura of the sleeve was approximately 4 cm. For hemostasis, a plastic clip waw placed along the staple line inferiorly. I then went to the head of the bed to perform the intraoperative esophagogastroduodenoscopy leak test. The upper pole of the stomach was bathed using normal saline solution. The scope was withdrawn with careful inspection along the staple line for which no leaks were found along the entire length. Additionally, the sleeve was completely hemostatic without any encroachment along the angularis incisura. Its topology was a soft "J". No stricture was encountered upon placement of the scope. The GI tract was desufflated. The patient tolerated this portion of the procedure well. The scope was completely withdrawn. The robot was undocked. I then rescrubbed into case, whereby the irrigation fluid was aspirated from the abdominal cavity. Tisseel fibrin sealant was placed along the entire staple length. Once dried the Abdi liver retractor was removed. Attention was now brought to removal of the specimen. The distal end of the sleeve gastrectomy specimen was brought out through the 12 mm port at the left upper quadrant. The specimen was gently removed en total , corresponding to 25 cm x 6 cm sleeve gastrectomy specimen. No contamination had occurred during this process. All instruments and pneumoperitoneum including irrigation fluid was removed from the abdominal cavity. The 12 mm port site was irrigated with warm normal saline solution and diluted hydron peroxide. The 12-mm port site was reapproximated using 0 Vicryl and Mohinder-Meryl of the left upper quadrant. The final incisions were closed using subcuticular interrupted suture of 4-0 Monocryl. Dermabond was applied to the skin once the skin had been cleansed. OptiFoam dressing was placed along the stomach extraction site. At the end of the procedure, needle, sponge, and instrument count was verified correct by the surgical technology instructor. The patient was taken to the postanesthesia care unit in stable condition. She had tolerated the procedure well. Intraoperative films and findings were reviewed with the patient's family. FINDINGS: 1. Negative intraoperative esophagogastrojejunoscopy leak test. 2. No large hiatus hernia. 3. Total of 9 staple loads used: 45 green8, 45 blue1 used to create the gastric sleeve. 4. Moderate perigastric adhesions from previous cholecystectomy adding additional 30 minutes to case 5. Sleeve gastrectomy 6 cm x 25 cm 6. Console time 66 minutes
[2018-01-16] MEDS ORDERED: ACETAMINOPHEN IV (For NPO) 1,000 MG/100 ML VIAL IVPB ONE (15:07)
[2018-01-16] MEDS: HYDROmorphone 1 MG/ML 1 ML SYRINGE IVP PRN ×3 (15:27→20:32)
[2018-01-16] MEDS ORDERED: INSULIN ASPART 100 UNIT/ML 1 ML 10 ML VIAL SQ ONE (15:44)
[2018-01-16 15:45] LABS: Glucose,Whole Blood 241 mg/dL (75-99)
[2018-01-16] MEDS: ALBUTEROL NEBULIZED 2.5 MG/3 ML INHALATION SCH ×2 (16:33→19:44)
[2018-01-16 17:08] VITALS: BMI 44.2
[2018-01-16] MEDS: 0.9% NACL WITH KCL 20 MEQ/L 1,000 ML IV SCH (17:28)
[2018-01-16] MEDS: AMPICILLIN-SULBACTAM 3 GM in SODIUM CHLORIDE 0.9% 100 ML IVPB SCH (17:28)
[2018-01-16] MEDS: ONDANSETRON 4 MG/2 ML VIAL IVP SCH (17:32)
[2018-01-16] MEDS: HYOSCYAMINE ORAL DROPS 1.875 MG/15 ML BOTTLE PO SCH (17:32)
[2018-01-16] MEDS: SIMETHICONE 40 MG/0.6 ML DROPS 2,000 MG/30 ML BOTTLE PO SCH (17:32)
[2018-01-16 17:42] LABS: Glucose,Whole Blood 214 mg/dL (75-99)
[2018-01-16] MEDS: INSULIN ASPART 100 UNIT/ML 1 ML 10 ML VIAL SQ SCH (17:56)
[2018-01-16] MEDS: ACETAMINOPHEN IV (For NPO) 1,000 MG in EMPTY BAG 1 BAG IVPB SCH (20:32)
[2018-01-17 00:15] LABS: Glucose,Whole Blood 135 mg/dL (75-99)
[2018-01-17] MEDS: ONDANSETRON 4 MG/2 ML VIAL IVP SCH ×3 (00:15→13:02)
[2018-01-17] MEDS: HYDROmorphone 1 MG/ML 1 ML SYRINGE IVP PRN ×2 (00:16→05:44)
[2018-01-17] MEDS: ACETAMINOPHEN IV (For NPO) 1,000 MG in EMPTY BAG 1 BAG IVPB SCH ×3 (00:16→13:00)
[2018-01-17] MEDS: SIMETHICONE 40 MG/0.6 ML DROPS 2,000 MG/30 ML BOTTLE PO SCH ×3 (00:16→13:01)
[2018-01-17] MEDS: HYOSCYAMINE ORAL DROPS 1.875 MG/15 ML BOTTLE PO SCH ×3 (00:17→13:01)
[2018-01-17] MEDS: INSULIN ASPART 100 UNIT/ML 1 ML 10 ML VIAL SQ SCH ×3 (00:17→13:02)
[2018-01-17] MEDS: AMPICILLIN-SULBACTAM 3 GM in SODIUM CHLORIDE 0.9% 100 ML IVPB SCH (01:23)
[2018-01-17] MEDS: 0.9% NACL WITH KCL 20 MEQ/L 1,000 ML IV SCH ×2 (01:24→07:58)
[2018-01-17 05:48] LABS: Glucose,Whole Blood 115 mg/dL (75-99)
[2018-01-17] MEDS: LACTATED RINGERS 1,000 ML IV SCH (06:03)
[2018-01-17 07:39] LABS: Basophils % (A) 0 %; Eosinophils % (A) 1 %; HCT 34.4 % (34.0-46.0); HGB 11.4 gm/dL (11.4-16.0); Lymphocytes # (A) 1.8 k/uL (1.0-4.8); Lymphocytes % (A) 28 %; MCH 30.4 pg (25.0-35.0); MCV 91.9 fL (80.0-100.0); Mean Platelet Volume 7.1; Monocytes # (A) 0.5 k/uL (0-1.0); Monocytes % (A) 8 %; Neutrophils # (A) 3.8 k/uL (1.3-7.7); Neutrophils % (A) 61 %; Platelet Count 247 k/uL (150-450); RBC 3.74 m/uL (3.80-5.40); RDW 13.9 % (11.5-15.5); WBC 6.3 k/uL (3.8-10.6)
[2018-01-17 07:47] LABS: Anion Gap 5 mmol/L; Blood Urea Nitrogen 13 mg/dL (7-17); Calcium 8.8 mg/dL (8.4-10.2); Carbon Dioxide 25 mmol/L (22-30); Chloride 109 mmol/L (98-107); Magnesium 1.7 mg/dL (1.6-2.3); Potassium 4.3 mmol/L (3.5-5.1); Sodium 139 mmol/L (137-145)
[2018-01-17 07:49] LABS: Glucose,Whole Blood 123 mg/dL (75-99)
[2018-01-17] MEDS ORDERED: 0.9% NACL WITH KCL 20 MEQ/L 1,000 ML IV SCH (08:00)
[2018-01-17 08:22] VITALS: BP 108/73; RESP 18; TEMP 98.8
[2018-01-17] MEDS: ALBUTEROL NEBULIZED 2.5 MG/3 ML INHALATION SCH ×3 (08:33→17:02)
[2018-01-17] MEDS ORDERED: ENOXAPARIN 40 MG/0.4 ML SYRINGE SQ SCH (09:00)
[2018-01-17] MEDS ORDERED: PANTOPRAZOLE 40 MG/10 ML VIAL IV SCH (09:00)
[2018-01-17] MEDS: HYDROcodone/APAP 15 ML SOLUTION PO PRN ×2 (09:34→15:33)
[2018-01-17] MEDS: MAGNESIUM SULFATE-D5W PMX 1 GM in DEXTROSE/WATER 1 100ML.BAG IVPB SCH ×3 (09:34→14:05)
--- NOTE | 2018-01-17 09:57 | FL ---
EXAMINATION TYPE: FL UGI DATE OF EXAM: 01/17/2018 COMPARISON: NONE HISTORY: Status post gastric sleeve surgery TECHNIQUE: A single contrast UGI study is performed. 1 minute and 44 seconds of fluoroscopy was util ized with 15 images saved. FINDINGS: The patient swallowed contrast without difficulty or delay. Esophageal peristalsis and mo tility are within normal limits. There is good flow of contrast along the diaphragmatic hiatus into proximal stomach and subsequent flow into gastric sleeve. There is some pooling of contrast in the ga stric fundus throughout the exam creating gastroesophageal reflux. There is good flow from distal sle william into pylorus and duodenal sweep. Patient remains asymptomatic. There is no evidence of contrast e xtravasation to suggest leak. IMPRESSION: No evidence of leak or significant obstruction status post recent gastric sleeve surgery. Delayed passage of contrast through the gastric body and pooling of a small amount of contrast withi n the gastric fundus resulting in mild gastroesophageal reflux.
[2018-01-17 11:51] VITALS: PULSE 88
[2018-01-17 11:55] LABS: Glucose,Whole Blood 175 mg/dL (75-99)
[2018-01-17 11:56] LABS: Hemoglobin A1C 7.5 % (4.0-6.0)
--- NOTE | 2018-01-17 14:59 | P.DS ---
<Dilia Aldana - Last Filed: 01/17/18 14:51> Providers Date of admission: 01/16/18 10:11 Expected date of discharge: 01/17/18 Attending physician: Loly Cm Primary care physician: Beto Proctor Hospital Course: 52-year-old female presented to be treated for morbid obesity the surgical approach. Patient completed 7 months of dietary weight loss program highest weight 290. Patient did develop type 2 diabetes. Current weight 269. BMI 44. On January 16 patient underwent robotic sleeve gastrectomy for morbid obesity on the day of discharge patient was up ambulatory on Unasyn on room air afebrile pain effectively controlled with the current analgesics was felt to be appropriate to be discharged Impression discharge diagnosis Robotic sleeve gastrectomy for morbid obesity done January 16 Morbid obesity BMI 49 Type 2 diabetes non-insulin Osteoarthritis involving the knees, hips, and the lower back. Depressive disorder. Hypertensive heart disease. Anxiety disorder The above impression and plan of care have been discussed and directed by signing physician. Dilia Aldana nurse practitioner acting as scribe for signing physician. Patient Condition at Discharge: Stable Plan - Discharge Summary Discharge Rx Participant: Yes New Discharge Prescriptions: New Bisacodyl [Dulcolax] 5 mg PO DAILY PRN #10 tablet. PRN Reason: Constipation Ondansetron Odt [Zofran Odt] 4 mg PO Q8HR PRN #9 tab PRN Reason: Nausea Simethicone 40 mg/0.6 ml Drops [Mylicon Drops] 40 mg PO PCHS PRN #30 ml PRN Reason: Gas Omeprazole 40 mg PO DAILY #30 capsule. HYDROcodone/APAP [[place] Elixir 7.5-325Mg/15Ml] 30 ml PO Q6H PRN #360 solution PRN Reason: Pain Continue Citalopram Hydrobromide [Citalopram HBr] 40 mg PO DAILY Omeprazole 40 mg PO DAILY #30 capsule. Discontinued metFORMIN HCL 1,000 mg PO BID Atorvastatin [Lipitor] 40 mg PO HS Pioglitazone [Actos] 30 mg PO DAILY Multivitamins, Thera [Multivitamin (formulary)] 1 tab PO DAILY Aspirin [Adult Low Dose Aspirin EC] 81 mg PO DAILY Cholecalciferol [Vitamin D3] 5,000 unit PO DAILY Discharge Medication List Citalopram Hydrobromide [Citalopram HBr] 40 mg PO DAILY 12/09/16 [History] Omeprazole 40 mg PO DAILY #30 capsule. 08/17/17 [Rx] Bisacodyl [Dulcolax] 5 mg PO DAILY PRN #10 tablet. 01/17/18 [Rx] HYDROcodone/APAP [[place] Elixir 7.5-325Mg/15Ml] 30 ml PO Q6H PRN #360 solution [Rx] Omeprazole 40 mg PO DAILY #30 capsule. 01/17/18 [Rx] Ondansetron Odt [Zofran Odt] 4 mg PO Q8HR PRN #9 tab 01/17/18 [Rx] Simethicone 40 mg/0.6 ml Drops [Mylicon Drops] 40 mg PO PCHS PRN #30 ml [Rx] Follow up Appointment(s)/Referral(s): [facility] [NON-STAFF] - 01/23/18 10:00 am Activity/Diet/Wound Care/Special Instructions: No lifting over 4 pounds in 4 weeks. May shower. No bath tub soaks. Remove dressing on Tuesday. Stay hydrated. Start protein shakes on . 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 Morbid obesity, BMI 48.4, initial to 44.2 2. Diabetes type II, [id number]-aokkeplcd. 3. Osteoarthritis of the knees. 4. Osteoarthritis of the hips. 5. Osteoarthritis of the lower back. 6. Hypertensive heart disease. 7. Depressive disorder 8. Hyperlipidemia 9. Anxiety 10. Dietary surveillance and counseling 11. Panniculitis 12. Peritoneal adhesions including gerhard-hepatic and perigastric adhesions from previous cholecystectomy COURSE: She was tolerating diet postprocedure. No reports of nausea or vomiting. Bariatric discharge instructions including diet were carefully reviewed. Her pain was well-controlled. GENERAL: Well developed and in no acute distress. Pleasant. HEENT: No sclera icterus. Extraocular movements grossly intact. Moist buccal mucosa. Head is atraumatic, normocephalic. Hears conversational speech. No nasal drainage. NECK: Supple without lymphadenopathy. No JV distention. CHEST: Non-labored respirations and equal bilateral excursions. CARDIOVASCULAR: Regular rate and rhythm. Palpable 2+ radial pulses. ABDOMEN: Soft, nontender. Nondistended. Dressings clean dry and intact. Laparoscopic sites without cellulitis MUSCULOSKELETAL: No clubbing, cyanosis or edema. NEUROLOGIC: No focal or lateralizing signs. Cranial nerves II-12 grossly intact PSYCH: Appropriate affect. Alert and oriented to person, place and time. SKIN: Good skin turgor. Well perfused. Vital Signs Temp 98.8 F 01/17/18 07:00 Pulse 88 01/17/18 11:45 Resp 18 01/17/18 07:00 BP 108/73 01/17/18 07:00 Pulse Ox 94 L 01/17/18 16:04 Laboratory Last Values WBC 6.3 k/uL (3.8-10.6) 01/17/18 06:57 RBC 3.74 m/uL (3.80-5.40) L 01/17/18 06:57 Hgb 11.4 gm/dL (11.4-16.0) 01/17/18 06:57 Hct 34.4 % (34.0-46.0) 01/17/18 06:57 MCV 91.9 fL (80.0-100.0) 01/17/18 06:57 MCH 30.4 pg (25.0-35.0) 01/17/18 06:57 MCHC 33.0 g/dL (31.0-37.0) 01/17/18 06:57 RDW 13.9 % (11.5-15.5) 01/17/18 06:57 Plt Count 247 k/uL (150-450) 01/17/18 06:57 Neutrophils % 61 % 01/17/18 06:57 Lymphocytes % 28 % 01/17/18 06:57 Monocytes % 8 % 01/17/18 06:57 Eosinophils % 1 % 01/17/18 06:57 Basophils % 0 % 01/17/18 06:57 Neutrophils # 3.8 k/uL (1.3-7.7) 01/17/18 06:57 Lymphocytes # 1.8 k/uL (1.0-4.8) 01/17/18 06:57 Monocytes # 0.5 k/uL (0-1.0) 01/17/18 06:57 Eosinophils # 0.0 k/uL (0-0.7) 01/17/18 06:57 Basophils # 0.0 k/uL (0-0.2) 01/17/18 06:57 Sodium 139 mmol/L (137-145) 01/17/18 06:57 Potassium 4.3 mmol/L (3.5-5.1) 01/17/18 06:57 Chloride 109 mmol/L (98-107) H 01/17/18 06:57 Carbon Dioxide 25 mmol/L (22-30) 01/17/18 06:57 Anion Gap 5 mmol/L 01/17/18 06:57 BUN 13 mg/dL (7-17) 01/17/18 06:57 Creatinine 0.66 mg/dL (0.52-1.04) 01/17/18 06:57 Est GFR (CKD-EPI)AfAm >90 (>60 ml/min/1.73 sqM) 01/17/18 06:57 Est GFR (CKD-EPI)NonAf >90 (>60 ml/min/1.73 sqM) 01/17/18 06:57 POC Glucose (mg/dL) 175 mg/dL (75-99) H 01/17/18 11:44 POC Glu Aquaculturist ID Laney [place] 01/17/18 11:[address] Glu mg/dL 169 01/17/18 06:57 Hemoglobin A1c 7.5 % (4.0-6.0) H 01/17/18 06:57 Calcium 8.8 mg/dL (8.4-10.2) 01/17/18 06:57 Phosphorus 4.0 mg/dL (2.5-4.5) 01/17/18 06:57 Magnesium 1.7 mg/dL (1.6-2.3) 01/17/18 06:57 Blood Type A Positive 01/06/18 13:15 Blood Type Recheck No 01/06/18 13:15 Antibody Screen NEGATIVE 01/06/18 13:15 Spec Expiration Date 01/18/2018 - 2315 01/06/18 13:15 Pertinent Studies: Esophagram negative for leak or obstruction Procedures: OPERATION: 1. Robotic assisted daVinci Xi laparoscopic assisted adhesions over 20 minutes performed 2. Robotic assisted daVinci Xi laparoscopic sleeve gastrectomy with 40-Urdu bougie, multiport. 3. Intraoperative esophagogastroduodenoscopy. ANESTHESIA: Gen. local anesthetic ESTIMATED BLOOD LOSS: 20 mL SPECIMENS REMOVED: Sleeve gastrectomy COMPLICATIONS: None. FINDINGS: 1. Negative intraoperative esophagogastrojejunoscopy leak test. 2. No large hiatus hernia. 3. Total of 9 staple loads used: 45 green8, 45 blue1 used to create the gastric sleeve. 4. Moderate perigastric adhesions from previous cholecystectomy adding additional 30 minutes to case 5. Sleeve gastrectomy 6 cm x 25 cm 6. Console time 66 minutes
[2018-01-18] MEDS ORDERED: BISACODYL 5 MG TABLET.DR PO PRN (08:00)
== END 2018-01-17 17:50 | disposition home or self-care (01) | DRG 621 ==
LOC: 2ORMAIN 10:11 → 4SSUR 14:40
PROVIDERS: ADMIT Surgery Plastic and Reconstructive Surgery; ATTEND Surgery Plastic and Reconstructive Surgery
DX: E66.01 Morbid (severe) obesity due to excess calories (principal); K66.0 Peritoneal adhesions (postprocedural) (postinfection); K21.9 Gastro-esophageal reflux disease without esophagitis; I11.9 Hypertensive heart disease without heart failure; M17.0 Bilateral primary osteoarthritis of knee; E11.40 Type 2 diabetes mellitus with diabetic neuropathy, unspecified; M16.0 Bilateral primary osteoarthritis of hip; E78.5 Hyperlipidemia, unspecified; M47.9 Spondylosis, unspecified; M79.3 Panniculitis, unspecified; F32.9 Major depressive disorder, single episode, unspecified; F41.9 Anxiety disorder, unspecified; Z79.84 Long term (current) use of oral hypoglycemic drugs; Z79.82 Long term (current) use of aspirin; Z79.899 Other long term (current) drug therapy; Z68.41 Body mass index [BMI] 40.0-44.9, adult; Z90.49 Acquired absence of other specified parts of digestive tract; Z98.51 Tubal ligation status; Z71.3 Dietary counseling and surveillance; Z83.3 Family history of diabetes mellitus; Z90.721 Acquired absence of ovaries, unilateral
CPT/HCPCS: 74240; 80051; 82310; 82565; 83036; 83735; 84100; 84520; 85025; 86850; 86900; 86901; 88307; 94640; 94760

== ENCOUNTER → 2018-01-23 | Outpatient (CLI) | payer BC ==
[2018-01-23 11:30] VITALS: BP 118/78; PULSE 82; TEMP 97.9; BMI 42.9
== END | disposition home or self-care (01) ==
LOC: BARWHC3 10:00
PROVIDERS: ATTEND Surgery Plastic and Reconstructive Surgery
DX: E66.01 Morbid (severe) obesity due to excess calories (principal); Z68.41 Body mass index [BMI] 40.0-44.9, adult
CPT/HCPCS: 97802; 99211

== ENCOUNTER → 2018-02-01 | Outpatient (CLI) | payer BC ==
--- NOTE | 2018-02-01 16:44 | P.PN ---
Subjective Progress Note Date: 02/01/18 DATE OF SERVICE: 02/01/2018 CHIEF COMPLAINT: Status post sleeve gastrectomy HISTORY OF PRESENT ILLNESS: Yue Nguyen is a 52-year-old female status post sleeve gastrectomy, 01/16/2018. She is doing well. No gastroesophageal reflux disease. No diarrhea or constipation. She is 2 weeks out. Highest weight was 290-lbs. At height of 5 feet 5 inches, her ideal body weight is 149 pounds. She was 273 pounds, 1 month ago. Her body mass index was down from 48.4. Today she comes in 254 pounds. She has lost 19 pounds in 1 month. Lifetime weight loss is 36 pounds. Percent excess weight loss is 25%. PHYSICAL EXAM: VITAL SIGNS: Height 5 foot 5 inches, weight 254 pounds. BMI 41.8 Vital Signs Temp 98.2 F 02/01/18 16:48 Pulse 76 02/01/18 16:48 Resp BP 120/84 02/01/18 16:48 Pulse Ox GENERAL: Well-developed in no acute distress. HEENT: No scleral icterus. Extraocular movements grossly intact. Hears conversational speech. No nasal drainage. NECK: Supple without lymphadenopathy. CHEST: Nonlabored respirations with equal bilateral excursions. CARDIOVASCULAR: Regular rate and rhythm. Distal 2+ pulses. ABDOMEN: Soft, nontender. No hernias. MUSCULOSKELETAL: No clubbing, cyanosis. Gross strength 5/5 distal lower extremities. NEURO: No focal or lateralizing signs. Cranial nerves 2 through 12 grossly within normal limits. PSYCH: Appropriate affect. Alert and oriented to person, place and time. SKIN: Good skin turgor. Well perfused. ASSESSMENT: 1. Morbid obesity due to excess caloried, BMI 48.4, initial to 41.8 2. Diabetes type II, [id number]. 3. Osteoarthritis of the knees. 4. Osteoarthritis of the hips. 5. Osteoarthritis of the lower back. 6. Hypertensive heart disease. 7. Depressive disorder 8. Hyperlipidemia 9. Anxiety 10. Status post sleeve gastrectomy PLAN: 1. She is doing well. 2. Recommend bariatric labs. 3. Okay to resume rehab
--- NOTE | 2018-02-01 16:46 | P.PN ---
Progress Note - Text Progress Note Date: 02/01/18 To whom it may concern: Yue Nguyen is under my surgical care. She may resume rehab as soon as possible. Regards, Loly Cm MD, FACS
[2018-02-01 17:00] VITALS: BP 120/84; PULSE 76; TEMP 98.2; BMI 41.8
== END | disposition home or self-care (01) ==
LOC: BARWHC3 15:13
PROVIDERS: ATTEND Surgery Plastic and Reconstructive Surgery
DX: Z48.815 Encounter for surgical aftercare following surgery on the digestive system (principal); E66.01 Morbid (severe) obesity due to excess calories; E11.9 Type 2 diabetes mellitus without complications; M17.0 Bilateral primary osteoarthritis of knee; M16.0 Bilateral primary osteoarthritis of hip; M47.896 Other spondylosis, lumbar region; I11.9 Hypertensive heart disease without heart failure; F32.9 Major depressive disorder, single episode, unspecified; E78.5 Hyperlipidemia, unspecified; F41.9 Anxiety disorder, unspecified; Z98.84 Bariatric surgery status; Z68.42 Body mass index [BMI] 45.0-49.9, adult
CPT/HCPCS: 99211

== ENCOUNTER → 2018-03-03 | Outpatient (CLI) | payer BC ==
[2018-03-03 14:14] LABS: HCT 41.3 % (34.0-46.0); HGB 13.4 gm/dL (11.4-16.0); MCH 29.7 pg (25.0-35.0); MCHC 32.5 g/dL (31.0-37.0); MCV 91.4 fL (80.0-100.0); Mean Platelet Volume 7.4; Partial Thromboplastin Time 23.1 sec (22.0-30.0); Platelet Count 257 k/uL (150-450); Prothrombin Time 10.5 sec (9.0-12.0); RBC 4.52 m/uL (3.80-5.40); RDW 13.4 % (11.5-15.5)
[2018-03-03 18:20] LABS: Parathyroid Hormone Intact 38.6 pg/mL (14.0-72.0)
[2018-03-03 18:43] LABS: Albumin 4.4 g/dL (3.80-4.90); Albumin/Globulin Ratio 2.32 (1.20-2.10); Anion Gap 9.7 mmol/L (4.00-12.00); Calcium 9.4 mg/dL (8.7-10.3); Carbon Dioxide 22.3 mmol/L (21.6-31.8); Globulin 1.9 g/dL (1.6-3.3); Iron Saturation 20.86 (12.00-45.00); LDL Cholesterol,Calculated 117.6 mg/dL (0.0-131.0); Magnesium 1.7 mg/dL (1.5-2.4); Phosphorus 3.2 mg/dL (2.4-5.1); Potassium 4.1 mmol/L (3.5-5.5); Total Bilirubin 0.4 mg/dL (0.3-1.2); Total Protein 6.3 g/dL (6.2-8.2); VLDL Calculation 32.4 mg/dL (5.00-40.00)
[2018-03-03 18:50] LABS: Vitamin D 25 Hydroxy 16.9 ng/mL (30.0-100.0)
[2018-03-03 19:01] LABS: Folate, Serum 21.9 ng/mL
[2018-03-03 20:18] LABS: Hemoglobin A1C 6.4 % (4.0-6.0)
[2018-03-06 13:54] LABS: Zinc, Serum 73 ug/dL (60-130)
[2018-03-07 06:46] LABS: Vitamin A 42 ug/dL (38-106)
[2018-03-07 07:39] LABS: Vitamin B1 86 ug/L (38-122)
== END ==
LOC: LABWHC1 13:21
PROVIDERS: ATTEND Surgery Plastic and Reconstructive Surgery
DX: E66.01 Morbid (severe) obesity due to excess calories (principal); E21.1 Secondary hyperparathyroidism, not elsewhere classified; E89.1 Postprocedural hypoinsulinemia; D50.9 Iron deficiency anemia, unspecified; K90.9 Intestinal malabsorption, unspecified; E44.0 Moderate protein-calorie malnutrition; E55.9 Vitamin D deficiency, unspecified; K74.1 Hepatic sclerosis; N19 Unspecified kidney failure; K50.90 Crohn's disease, unspecified, without complications
CPT/HCPCS: 36415; 80053; 80061; 82306; 82525; 82607; 82728; 82746; 83036; 83540; 83550; 83735; 83970; 84100; 84134; 84255; 84425; 84443; 84590; 84630; 85027; 85610; 85730

== ENCOUNTER → 2018-03-08 | Outpatient (CLI) | payer BC ==
--- NOTE | 2018-03-08 16:14 | P.PN ---
Subjective Progress Note Date: 03/08/18 DATE OF SERVICE: 03/08/2018 CHIEF COMPLAINT: Status post sleeve gastrectomy HISTORY OF PRESENT ILLNESS: Yue Nguyen is a 52-year-old female status post sleeve gastrectomy, 01/16/2018. She is 2 months out. She is doing well. She lost 30+ pounds. She has problems with chewable vitamins and chicken. Highest weight was 290-lbs. At height of 5 feet 5 inches, her ideal body weight is 149 pounds. Her body mass index was 48.4. Today she comes in 244 pounds from 254 pounds, 1 month ago. She has lost 10 pounds since last visit 1 month ago. Lifetime weight loss is 46 pounds. Percent excess weight loss is 32 %. PHYSICAL EXAM: VITAL SIGNS: Height 5 foot 5 inches, weight 244 pounds. BMI 40.8 Vital Signs Temp 97.5 F L 03/08/18 16:13 Pulse 67 03/08/18 16:13 Resp 16 03/08/18 16:13 BP 117/80 03/08/18 16:13 Pulse Ox GENERAL: Well-developed in no acute distress. HEENT: No scleral icterus. Extraocular movements grossly intact. Hears conversational speech. No nasal drainage. NECK: Supple without lymphadenopathy. CHEST: Nonlabored respirations with equal bilateral excursions. CARDIOVASCULAR: Regular rate and rhythm. Distal 2+ pulses. ABDOMEN: Soft, nontender. No hernias. MUSCULOSKELETAL: No clubbing, cyanosis. Gross strength 5/5 distal lower extremities. NEURO: No focal or lateralizing signs. Cranial nerves 2 through 12 grossly within normal limits. PSYCH: Appropriate affect. Alert and oriented to person, place and time. SKIN: Good skin turgor. Well perfused. LABS: Reviewed ASSESSMENT: 1. Morbid obesity due to excess caloried, BMI 48.4, initial to 40.8 2. Diabetes type II, [id number]. 3. Osteoarthritis of the knees. 4. Osteoarthritis of the hips. 5. Osteoarthritis of the lower back. 6. Hypertensive heart disease. 7. Depressive disorder 8. Hyperlipidemia 9. Anxiety 10. Status post sleeve gastrectomy PLAN: 1. Blood work to be obtained today. 2. Adjustment of portion size reviewed. 3. Recommend taking yogurt with vitamins. 4. She stopped her omeprazole.
[2018-03-08 16:15] VITALS: BP 117/80; PULSE 67; RESP 16; TEMP 97.5; BMI 40.7
== END ==
LOC: BARWHC3 14:21
PROVIDERS: ATTEND Surgery Plastic and Reconstructive Surgery
DX: Z48.815 Encounter for surgical aftercare following surgery on the digestive system (principal); E66.01 Morbid (severe) obesity due to excess calories; E11.9 Type 2 diabetes mellitus without complications; M17.0 Bilateral primary osteoarthritis of knee; M16.0 Bilateral primary osteoarthritis of hip; I11.9 Hypertensive heart disease without heart failure; F32.9 Major depressive disorder, single episode, unspecified; E55.9 Vitamin D deficiency, unspecified; E78.5 Hyperlipidemia, unspecified; F41.9 Anxiety disorder, unspecified; Z98.84 Bariatric surgery status; Z68.41 Body mass index [BMI] 40.0-44.9, adult
CPT/HCPCS: 97803; 99211

== ENCOUNTER → 2018-06-28 | Outpatient (CLI) | payer BC ==
--- NOTE | 2018-06-28 13:35 | P.PN ---
Subjective Progress Note Date: 06/28/18 HPI: She is 6 months out from her sleeve gastrectomy. She reports constipation severe. No GERD. No further metformin for diabetes. She is taking medications for cholesterol. More fatigue. Little hair loss. Normal for slow weight loss. ABDOMEN: Has large pannus over 10 pounds. Mild panniculitis. ASSESSMENT: 1. Status post sleeve gastrectomy PLAN: 1. For constipation, Miralax 2. For fatigue, check iron check. 3. Follow up for 9 month visit. 4. Recommend food diary journal 5. Nystatin for panniculitis
[2018-06-28 13:54] VITALS: BP 116/76; PULSE 60; TEMP 98; BMI 37.0
[2018-06-28 14:49] LABS: HCT 39.3 % (34.0-46.0); MCH 29.9 pg (25.0-35.0); MCV 90.6 fL (80.0-100.0); Mean Platelet Volume 7.6; Platelet Count 248 k/uL (150-450); RBC 4.35 m/uL (3.80-5.40); RDW 13.6 % (11.5-15.5); WBC 8.4 k/uL (3.8-10.6)
[2018-06-28 15:03] LABS: Partial Thromboplastin Time 23.6 sec (22.0-30.0); Prothrombin Time 10.5 sec (9.0-12.0)
[2018-06-28 19:18] LABS: Albumin 4.5 g/dL (3.80-4.90); Albumin/Globulin Ratio 2.37 (1.60-3.17); Calcium 9.7 mg/dL (8.7-10.3); Globulin 1.9 g/dL (1.6-3.3); LDL Cholesterol,Calculated 66.6 mg/dL (0.0-131.0); Magnesium 1.9 mg/dL (1.5-2.4); Phosphorus 3.7 mg/dL (2.4-5.1); Potassium 4.4 mmol/L (3.5-5.5); Total Bilirubin 0.3 mg/dL (0.3-1.2); Total Protein 6.4 g/dL (6.2-8.2); VLDL Calculation 12.4 mg/dL (5.00-40.00)
[2018-06-28 19:20] LABS: Iron Saturation 11.66 (12.00-45.00)
[2018-06-28 19:27] LABS: Vitamin D 25 Hydroxy 45.7 ng/mL (30.0-100.0)
[2018-06-28 19:42] LABS: Folate, Serum 15.5 ng/mL
[2018-06-28 21:17] LABS: Hemoglobin A1C 5.8 % (4.0-6.0)
[2018-06-29 13:57] LABS: Zinc, Serum 74 ug/dL (60-130)
[2018-06-30 06:22] LABS: Vitamin A 38 ug/dL (38-106)
== END | disposition home or self-care (01) ==
LOC: BARWHC3 13:12
PROVIDERS: ATTEND Surgery Plastic and Reconstructive Surgery
DX: Z09 Encounter for follow-up examination after completed treatment for conditions other than malignant neoplasm (principal); M79.3 Panniculitis, unspecified; K59.00 Constipation, unspecified; R53.83 Other fatigue; L65.9 Nonscarring hair loss, unspecified; E66.01 Morbid (severe) obesity due to excess calories; E21.1 Secondary hyperparathyroidism, not elsewhere classified; E89.1 Postprocedural hypoinsulinemia; D50.9 Iron deficiency anemia, unspecified; E44.0 Moderate protein-calorie malnutrition; E55.9 Vitamin D deficiency, unspecified; K74.1 Hepatic sclerosis; N19 Unspecified kidney failure; K50.90 Crohn's disease, unspecified, without complications; Z98.84 Bariatric surgery status; Z68.37 Body mass index [BMI] 37.0-37.9, adult
CPT/HCPCS: 80053; 80061; 82306; 82525; 82607; 82728; 82746; 83036; 83540; 83550; 83735; 83970; 84100; 84134; 84255; 84425; 84443; 84590; 84630; 85027; 85610; 85730; 97803; 99211

== ENCOUNTER → 2022-06-29 | Outpatient (CLI) | payer BC ==
[2022-06-29 13:32] VITALS: BP 98/66; PULSE 89; RESP 17; TEMP 98
--- NOTE | 2022-06-29 14:24 | P.HPOB ---
History of Present Illness H&P Date: 06/29/22 Chief Complaint: The patient is here for her routine gynecologic exam and ma mmogram. This is a 57-year-old with an LMP of 2011. The patient is here to establish with this office. It is been about 5 years since her last pelvic exam. She is without gynecologic complaints and denies any postmenopausal bleeding. Review of Systems The patient has gained 20 pounds over the last year. She believes this has been from not eating well. She had lost 70 pounds after her gastric sleeve surgery in 2018. She denies respiratory, cardiac, or G.I. problems. Past Medical History Past Medical History: Diabetes Mellitus, Hyperlipidemia Additional Past Medical History / Comment(s): type 2 DM. 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 History of Any Multi-Drug Resistant Organisms: None Reported Past Surgical History: Bariatric Surgery, Cholecystectomy, Ear Surgery, Tonsillectomy, Tubal Ligation Additional Past Surgical History / Comment(s): LEFT EARDRUM, Left and 1/2 of right ovaries removed. sleeve gastrectomy 01-16-18. Colonoscopy 2015(next after 10yr). Past Anesthesia/Blood Transfusion Reactions: No Reported Reaction Past Psychological History: Anxiety (She denies current depression.) Smoking Status: Never smoker Past Alcohol Use History: Rare (2 drinks every 6 months.) Past Drug Use History: None Reported Additional History: She is single and is not seeing anybody at this time and is not currently sexually active. She is a overhead line worker. - Past Family History Mother Family Medical History: Cancer Additional Family Medical History / Comment(s): Widespread cancer with unknown primary. Daughter(s) Family Medical History: Deep Vein Thrombosis (DVT) Additional Family Medical History / Comment(s): jugular vein DVT, Father Additional Family Medical History / Comment(s): Heart disease. Paternal cousin had breast cancer. Medications and Allergies Home Medications Medication Instructions Recorded Confirmed Type Citalopram Hydrobromide 40 mg PO DAILY 12/09/16 06/29/22 History [Citalopram HBr] Aspirin [Children's Aspirin] 81 mg PO DAILY 06/29/22 06/29/22 History Atorvastatin [Lipitor] 20 mg PO DAILY 06/29/22 06/29/22 History Multivitamin [Multivitamins Adult 1 tab PO DAILY 06/29/22 06/29/22 History Gummies] metFORMIN HCL 1,000 mg PO BID 06/29/22 06/29/22 History Allergies Allergy/AdvReac Type Severity Reaction Status Date / Time No Known Allergies Allergy Verified 06/29/22 13:27 Exam Vital Signs Temp Pulse Resp BP Pulse Ox 06/29/22 13:30 98 F 89 17 98/66 96 Intake and Output 06/28/22 06/29/22 06/29/22 22:59 06:59 14:59 Other: Weight 110.223 kg Height 5 feet 4 inches, weight 243 pounds, BMI 41.7. This is a well-developed well-nourished white female who is alert and oriented times 3 in no acute distress. HEENT: Within normal limits. NECK: Supple without mass or thyromegaly. CHEST AND LUNGS: Clear to auscultation. HEART: Regular rate and rhythm. BREASTS: Are without mass or discharge. AXILLARY EXAM: Negative for adenopathy. BACK: Negative for CVA tenderness. ABDOMEN: Soft, nontender, without palpable masses. PELVIC EXAM: Normal external genitalia with mild atrophy. Cervix and vagina appear normal with mild atrophy. There is no unusual discharge. There is no evidence of prolapse. The uterus is midposition, nongravid size and nontender. There are no palpable adnexal masses or tenderness. RECTAL EXAM: Rectovaginal exam is negative for mass or tenderness and is negative for occult blood. EXTREMITIES: Nontender. IMPRESSION: 1. 57-year-old menopausal female with normal gynecologic exam. 2. History of previous left oophorectomy for benign reasons. PLAN: 1. Pap smear coated test was performed. 2. Self breast awareness was discussed with the patient. We have also discussed symptoms associated with inflammatory breast cancer. 3. Screening mammogram will be done today. 4. Osteoporosis prevention was discussed. I have stressed the importance of adequate calcium, vitamin D and regular exercise. Recommended amounts of calcium and vitamin D were also discussed. 5. She was advised to return in one year for her annual well woman exam.
--- NOTE | 2022-06-30 21:00 | MM ---
Reason for Exam: Screening (asymptomatic). Last mammogram was performed 5 year(s) and 1 month(s) ago. Patient History: Menarche at age 11. First Full-Term at age 24. Left ovary removed at age 43. Right ovary removed at age 43. Postmenopausal. Patient has history of breast feeding. Paternal cousin had breast cancer, age 50. Risk Values: Monique 5 year model risk: 1.3%. NCI Lifetime model risk: 7.7%. Prior Study Comparison: 04/01/2010 Bilateral Screening Mammogram, [facility]. 06/21/2014 Bilateral Screening Mammogram, [facility]. 06/08/2017 Bilateral Screening Mammogram, [facility]. Tissue Density: There are scattered fibroglandular densities. Findings: Analyzed By CAD. There is no suspicious group of microcalcifications or new suspicious mass in either breast. Overall Assessment: Negative, BI-RAD 1 Management: Screening Mammogram of both breasts in 1 year. . Patient should continue monthly self-breast exams. A clinical breast exam by your physician is recommended on an annual basis. This exam should not preclude additional follow-up of suspicious palpable abnormalities. Note on Monique scores and lifetime risk: 1. A Monique score greater than 3% is considered moderate risk. If this is the case, consider specialist referral to assess eligibility for a risk reducing agent. 2. If overall lifetime risk for the development of breast cancer is 20% or higher, the patient may qualify for future screening with alternating mammogram and breast MRI. Electronically signed and approved by: Regino Read M.D. Radiologist
== END ==
LOC: WWCWWP 13:18
PROVIDERS: ATTEND Obstetrics & Gynecology
DX: Z12.31 Encounter for screening mammogram for malignant neoplasm of breast (principal); E11.9 Type 2 diabetes mellitus without complications; E78.5 Hyperlipidemia, unspecified; Z79.84 Long term (current) use of oral hypoglycemic drugs; Z79.899 Other long term (current) drug therapy; Z82.49 Family history of ischemic heart disease and other diseases of the circulatory system; Z90.49 Acquired absence of other specified parts of digestive tract; Z90.722 Acquired absence of ovaries, bilateral; Z79.82 Long term (current) use of aspirin
CPT/HCPCS: 77067

== ENCOUNTER → 2024-02-14 | Outpatient (CLI) | payer BC ==
[2024-02-14 12:56] VITALS: BP 119/79; PULSE 80; RESP 17; TEMP 97.7
--- NOTE | 2024-02-14 13:16 | P.HPOB ---
History of Present Illness H&P Date: 02/14/24 Chief Complaint: The patient is here for her routine gynecologic exam and ma mmogram. This is a 58-year-old G2, P2 with an LMP of 2011. The patient is without gynecologic complaints and denies any postmenopausal bleeding. Review of Systems The patient has lost 23 pounds over the last year. She denies respiratory, cardiac, or G.I. problems. Past Medical History Past Medical History: Diabetes Mellitus, Hyperlipidemia Additional Past Medical History / Comment(s): type 2 DM. 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 History of Any Multi-Drug Resistant Organisms: None Reported Past Surgical History: Bariatric Surgery, Cholecystectomy, Ear Surgery, Tonsillectomy, Tubal Ligation Additional Past Surgical History / Comment(s): LEFT EARDRUM, Left and 1/2 of right ovary removed. sleeve gastrectomy 01-16-18. Colonoscopy 2015(next after 10yr). Past Anesthesia/Blood Transfusion Reactions: No Reported Reaction Past Psychological History: Anxiety Smoking Status: Never smoker Past Alcohol Use History: Rare (4 drinks per year.) Past Drug Use History: None Reported Additional History: She is single and has not seeing anybody at this time and is not currently sexually active. She is currently not working outside of the home. - Past Family History Mother Family Medical History: Cancer Additional Family Medical History / Comment(s): Widespread cancer with unknown primary. Daughter(s) Family Medical History: Deep Vein Thrombosis (DVT) Additional Family Medical History / Comment(s): jugular vein DVT, Father Additional Family Medical History / Comment(s): Heart disease. Paternal cousin had breast cancer. Medications and Allergies Home Medications Medication Instructions Recorded Confirmed Type Citalopram Hydrobromide 40 mg PO DAILY 12/09/16 06/29/22 History [Citalopram HBr] Aspirin [Children's Aspirin] 81 mg PO DAILY 06/29/22 06/29/22 History Atorvastatin [Lipitor] 20 mg PO DAILY 06/29/22 06/29/22 History Multivitamin [Multivitamins Adult 1 tab PO DAILY 06/29/22 06/29/22 History Gummies] metFORMIN HCL 1,000 mg PO BID 06/29/22 06/29/22 History Allergies Allergy/AdvReac Type Severity Reaction Status Date / Time No Known Allergies Allergy Verified 02/14/24 12:53 Exam Vital Signs Temp Pulse Resp BP Pulse Ox 02/14/24 12:54 97.7 F 80 17 119/79 94 L Intake and Output 02/13/24 02/14/24 02/14/24 22:59 06:59 14:59 Other: Weight 99.79 kg Height 5 feet 4 inches, weight 220 pounds, BMI 37.8. This is a well-developed well-nourished white female who is alert and oriented times 3 in no acute distress. HEENT: Within normal limits. NECK: Supple without mass or thyromegaly. CHEST AND LUNGS: Clear to auscultation. HEART: Regular rate and rhythm. BREASTS: Are without mass or discharge. AXILLARY EXAM: Negative for adenopathy. BACK: Negative for CVA tenderness. ABDOMEN: Soft, nontender, without palpable masses. PELVIC EXAM: Normal external genitalia with mild atrophy. Cervix and vagina appear normal with mild atrophy. There is no unusual discharge. There is no e vidence of prolapse. The uterus is midposition, nongravid size and nontender. There are no palpable adnexal masses or tenderness. RECTAL EXAM: Rectovaginal exam is negative for mass or tenderness and is negative for occult blood. EXTREMITIES: Nontender. IMPRESSION: 1. 58-year-old menopausal female status post left oophorectomy and partial right nephrectomy for benign reasons, with normal gynecologic exams. PLAN: 1. Pap smear was deferred since she had a negative Pap smear cotest on 06/29/2022. 2. Self breast awareness was discussed with the patient. We have also discussed symptoms associated with inflammatory breast cancer. 3. Screening mammogram will be done today. 4. Osteoporosis prevention was discussed. I have stressed the importance of adequate calcium, vitamin D and regular exercise. Recommended amounts of calcium and vitamin D were also discussed. 5. She was advised to return in one year for her annual well woman exam.
--- NOTE | 2024-02-15 12:15 | MM ---
Reason for Exam: Screening (asymptomatic). Last mammogram was performed 1 year(s) and 7 month(s) ago. Patient History: Menarche at age 11. First Full-Term at age 24. Left ovary removed at age 43. Right ovary removed at age 43. Postmenopausal. Patient has history of breast feeding. Paternal cousin had breast cancer, age 50. Risk Values: Monique 5 year model risk: 1.3%. NCI Lifetime model risk: 7.6%. Prior Study Comparison: 06/21/2014 Bilateral Screening Mammogram, [facility]. 06/08/2017 Bilateral Screening Mammogram, [facility]. 06/29/2022 Bilateral MG screening mammo w CAD, [facility]. Tissue Density: There are scattered areas of fibroglandular density. Findings: Analyzed By CAD. Right breast: There is no suspicious group of microcalcifications or new suspicious mass. Left breast: There is no suspicious group of microcalcifications or new suspicious mass. Overall Assessment: Negative, BI-RAD 1 Management: Screening Mammogram of both breasts in [address] [facility] will attempt to contact patient to return for supplemental views and ultrasound if indicated. Patient should continue monthly self-breast exams. A clinical breast exam by your physician is recommended on an annual basis. This exam should not preclude additional follow-up of suspicious palpable abnormalities. Note on Monique scores and lifetime risk: 1. A Monique score greater than 3% is considered moderate risk. If this is the case, consider specialist referral to assess eligibility for a risk reducing agent. 2. If overall lifetime risk for the development of breast cancer is 20% or higher, the patient may qualify for future screening with alternating mammogram and breast MRI. [facility], , 02/15/2024 12:12 PM. Electronically signed and approved by: Sb Gutierres DO
== END ==
LOC: WWCWWP 12:27
PROVIDERS: ATTEND Obstetrics & Gynecology
DX: Z12.31 Encounter for screening mammogram for malignant neoplasm of breast (principal); Z90.5 Acquired absence of kidney; Z90.721 Acquired absence of ovaries, unilateral; Z80.3 Family history of malignant neoplasm of breast
CPT/HCPCS: 77067